=== PATIENT | female | born 1960 | race Caucasian/White ===

== ENCOUNTER 2017-05-13 16:42 | Observation (INO) | payer BC ==
[~2017-05-13] VITALS: Ht 167.6 cm; Wt 100.3 kg
[2017-05-13] MEDS ORDERED: SODIUM CHLOR 0.9% 250 ML INJ 250 ML IV ONE (17:15)
[2017-05-13 18:35] VITALS: BP 150/80; PULSE 96; RESP 16; TEMP 97.8; O2SAT 98
[2017-05-13 19:05] LABS: INTERNATIONAL NORMALIZED RATIO 0.9 RATIO; PROTHROMBIN TIME - PATIENT 10.3 SEC (9.8-11.6)
[2017-05-13] MEDS ORDERED: SUCR1TAB PO (19:28)
[2017-05-13] MEDS ORDERED: VITA250T3 PO (19:32)
[2017-05-13] MEDS ORDERED: PANT40TA3 PO (19:32)
[2017-05-13] MEDS ORDERED: VENL75TA PO (19:32)
[2017-05-13] MEDS ORDERED: LORA-392 PO (19:32)
[2017-05-13 20:00] VITALS: BP 152/69; PULSE 83; RESP 17; TEMP 96.9; O2SAT 96
[2017-05-13] MEDS: ACETAMINOPHEN/HYDROcodone 325 MG/5 MG TAB PO PRN (21:36)
[2017-05-13] MEDS: ONDANSETRON HCL 4 MG/2 ML VIAL IV PUSH PRN (21:36)
[2017-05-13] MEDS: SODIUM CHLOR 0.9% 1000 ML INJ 1,000 ML IV SCH (21:41)
[2017-05-13 22:44] VITALS: BP 151/71; PULSE 74; RESP 16; TEMP 96.2; O2SAT 96
[2017-05-13 23:10] VITALS: BP 142/71; PULSE 81; RESP 17; TEMP 96.6; O2SAT 95
[2017-05-13 23:26] LABS: BLOOD, URINE NEG (NEG); COMMENT (UR) CULT NOT INDICATED; CULTURE IF INDICATED CULT NOT INDICATED; GLUCOSE,URINE NEG (NEG); KETONE, URINE NEG (NEG); NITRITE,URINE NEG (NEG); SQUAMOUS EPITHELIAL CELL URINE 1 /hpf (0-5); URINE COLOR YELLOW (YELLW/STRAW)
[2017-05-14 01:50] VITALS: BP 124/69; PULSE 70; RESP 17; TEMP 96.8; O2SAT 98
[2017-05-14] MEDS: ACETAMINOPHEN/HYDROcodone 325 MG/5 MG TAB PO PRN (02:25)
[2017-05-14 02:30] VITALS: BP 124/69; PULSE 70; RESP 17; TEMP 96.8; O2SAT 98
[2017-05-14 02:45] VITALS: BP 138/69; PULSE 67; RESP 16; TEMP 96.8; O2SAT 97
[2017-05-14] MEDS: ONDANSETRON HCL 4 MG/2 ML VIAL IV PUSH PRN ×2 (04:04→10:22)
[2017-05-14 05:26] VITALS: BP 133/74; PULSE 68; RESP 16; TEMP 96.2; O2SAT 97
[2017-05-14] MEDS ORDERED: PANTOPRAZOLE SOD 40 MG DELAYED RELEASE TAB PO SCH (06:00)
[2017-05-14] MEDS: SUCRALFATE 1 GM TAB PO SCH ×2 (07:00→16:46)
[2017-05-14 07:29] LABS: AUTOMATED NEUTROPHIL # 2.7 TH/MM3 (1.8-7.7); BASOPHIL # 0.1 TH/MM3 (0-0.2); EOSINOPHIL # 0.3 TH/MM3 (0-0.4); EOSINOPHIL % 4.4 % (0.0-4.0); HEMATOCRIT 30.8 % (35.0-46.0); LYMPH % 35.4 % (9.0-44.0); MEAN CELL VOLUME 64.2 FL (80.0-100.0); MEAN CORPUSCULAR HGB CONC 31.1 % (32.0-36.0); MONO % 11.3 % (0.0-8.0); NEUT % 47.9 % (16.0-70.0); PLATELET COUNT 363 TH/MM3 (150-450); RED CELL DISTRIBUTION WIDTH 28.3 % (11.6-17.2); WHITE BLOOD COUNT 5.7 TH/MM3 (4.0-11.0)
[2017-05-14 07:57] LABS: HEMO FLAGS AUTO DIFF
[2017-05-14 08:00] VITALS: BP 137/66; PULSE 73; RESP 18; TEMP 96.4; O2SAT 97
[2017-05-14] MEDS ORDERED: PROMETHAZINE 25 MG/ML IM PRN (08:30)
[2017-05-14] MEDS ORDERED: ASCORBIC ACID 500 MG TAB PO SCH (09:00)
[2017-05-14] MEDS ORDERED: VENLAFAXINE HCL XR 75 MG CAP PO SCH (09:00)
[2017-05-14 09:43] LABS: OVALOCYTES 1+ (NORMAL); SCAN/DIFF AUTO DIFF CONFIRMED
--- NOTE | 2017-05-14 10:29 | HHI.PR ---
Subjective Remarks 1 episode BRB. Now with nausea and vomiting even though NPO. Has had abdominal pain for 2 months. EGD and US GB done by Dr West apparently normal. For HIDA scan today. Objective Vital Signs Date Time Temp Pulse Resp B/P Pulse Ox O2 Delivery O2 Flow Rate FiO2 05/14/17 08:00 96.4 73 18 137/66 97 05/14/17 05:26 96.2 68 16 133/74 97 05/14/17 05:26 96.2 68 16 133/74 97 05/14/17 02:45 96.8 67 16 138/69 97 05/14/17 02:30 96.8 70 17 124/69 98 05/14/17 01:50 96.8 70 17 124/69 98 05/13/17 23:10 96.6 81 17 142/71 95 05/13/17 23:10 96.6 81 17 142/71 95 05/13/17 22:44 96.2 74 16 151/71 96 05/13/17 20:00 96.9 83 17 152/69 96 05/13/17 18:35 97.8 96 16 150/80 98 I/O 05/13/17 05/13/17 05/13/17 05/14/17 05/14/17 05/14/17 06:59 14:59 22:59 06:59 14:59 22:59 Intake Total 240 ml 574 ml Balance 240 ml 574 ml Intake Oral 240 ml 240 ml Packed Cells 334 ml # Voids 1 2 # Bowel Movements 0 0 Result Diagram: 05/14/17 0610 Objective Remarks VS-S Abd: soft, RUQ tenderness Assessment and Plan Assessment and Plan Pain and Nausea and vomiting- R/O Cholecystitis. Plan: HIDA. Blaine Haywood MD May 14, 2017 10:29
--- NOTE | 2017-05-14 13:37 | RADRPT ---
EXAM DATE/TIME: 05/14/2017 10:35 [facility] COMPARISON: No previous studies available for comparison. INDICATIONS : Right side pain with nausea. DOSE: 4.2 mCi Tc99m Mebrofenin IV MEDICAL HISTORY : Carcinoma, breast. SURGICAL HISTORY : Hysterectomy. Colon resection. Mastectomy, bilateral. ENCOUNTER: Initial ACUITY: 1 day PAIN SCALE: 0/10 LOCATION: Bilateral upper quadrant TECHNIQUE: Following the intravenous administration of radiotracer, dynamic sequential images were performed wit h continuous acquisition. FINDINGS: HEPATIC KINETICS: There is prompt uptake of radiotracer in the liver. No focal defects are seen. There is normal rate of washout from the hepatic parenchyma. BILIARY CLEARANCE: Activity is first seen in the extrahepatic biliary system at 15 minutes. There is normal excretion i nto the small bowel. GALLBLADDER: Activity is first seen in the gallbladder at 15 minutes. Common bile duct kinetics are normal and th ere is no evidence of biliary obstruction. BILIARY ENTRIC REFLUX: None observed. CONCLUSION: 1. Activity demonstrated in the gallbladder confirms patency of the cystic duct making diagnosis of a cute cholecystitis highly unlikely. 2. No evidence for biliary obstruction. Silver Schwab MD on May 14, 2017 at 13:31 Board Certified Radiologist. This report was verified electronically.
--- NOTE | 2017-05-14 15:12 | HHI.DCPOC ---
Discharge Care Plan Diagnosis: (1) Anemia Your Health Problems Are: Appetite Changes Chronic Pain Goals to Promote Your Health * To prevent worsening of your condition and complications * To maintain your health at the optimal level Directions to Meet Your Goals Take your medications as prescribed Follow your dietary instruction Follow activity as directed Keep your appointments as scheduled Take your immunizations and boosters as scheduled If your symptoms worsen call your PCP, if no PCP go to Urgent Care Center or Emergency Room Smoking is Dangerous to Your Health. Avoid second hand smoke Call the 24-hour hour crisis hotline for domestic abuse at Blaine Haywood MD May 14, 2017 15:12
[2017-05-14 15:37] VITALS: BP 128/66; PULSE 67; RESP 18; TEMP 97.7; O2SAT 97
[2017-05-14] MEDS: SODIUM CHLOR 0.9% 1000 ML INJ 1,000 ML IV SCH (17:04)
--- NOTE | 2017-05-27 17:20 | HHI.PR ---
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
== END 2017-05-14 20:43 | disposition home or self-care (01) ==
LOC: N06A 16:42
PROVIDERS: ADMIT Colon & Rectal Surgery; ATTEND Colon & Rectal Surgery
DX: R11.2 Nausea with vomiting, unspecified (principal); R10.9 Unspecified abdominal pain; D50.0 Iron deficiency anemia secondary to blood loss (chronic); K92.2 Gastrointestinal hemorrhage, unspecified
CPT/HCPCS: 36430; 78226; 81001; 85025; 85610; 85730; 86850; 86900; 86901; 86920; A9537; G0378; J2405; J7030; J7050; P9016